=== PATIENT | female | born 1985 | race African-American/Black ===

== ENCOUNTER 2019-08-10 19:37 | Emergency (ER) | payer MEDICAID ==
[~2019-08-10] VITALS: Ht 172.7 cm; Wt 70.8 kg
[2019-08-10 20:03] VITALS: BP 131/90; Ht 172.7 cm; Wt 70.8 kg
[2019-08-10 21:43] LABS: microscopic required? YES; urine erythrocyte 3+ (NEGATIVE)
== END 2019-08-10 21:59 | disposition home or self-care (01) ==
LOC: ED 19:37
PROVIDERS: Specialist
DX: G89.29 Other chronic pain (principal); R10.2 Pelvic and perineal pain; N39.0 Urinary tract infection, site not specified; I10 Essential (primary) hypertension; Z87.448 Personal history of other diseases of urinary system

== ENCOUNTER 2019-08-21 22:10 | Emergency (ER) | payer MEDICAID ==
[~2019-08-21] VITALS: Ht 172.7 cm; Wt 71.2 kg
[2019-08-21 22:20] VITALS: Ht 172.7 cm; Wt 71.2 kg
[2019-08-21 22:56] VITALS: BP 132/97
== END 2019-08-21 22:56 | disposition home or self-care (01) ==
LOC: ED 22:10
DX: J02.9 Acute pharyngitis, unspecified (principal); F17.210 Nicotine dependence, cigarettes, uncomplicated; Z71.6 Tobacco abuse counseling; Z88.0 Allergy status to penicillin; I10 Essential (primary) hypertension
CPT/HCPCS: 99406